=== PATIENT | female | born 2000 | race Caucasian/White ===

== ENCOUNTER → 2022-06-13 11:27 | Outpatient (BNVA) | payer MEDICAID, SELFPAY | PROVIDERS: Visit Provider Nurse Practitioner Women's Health | DX: Z34.90 Encounter for supervision of normal pregnancy, unspecified, unspecified trimester (principal) | CPT/HCPCS: 80307; 81000; 84443; 85027; 86592; 86762; 86803; 86850; 86900; 87086; 87340; 87806 ==

== ENCOUNTER → 2022-06-29 15:20 | Outpatient (BNVA) | payer MEDICAID, SELFPAY | PROVIDERS: Visit Provider Obstetrics & Gynecology | DX: Z36.87 Encounter for antenatal screening for uncertain dates (principal) | CPT/HCPCS: 76801 ==

== ENCOUNTER → 2022-08-08 14:20 | Outpatient (BNVA) | payer MEDICAID, SELFPAY | PROVIDERS: Visit Provider Obstetrics & Gynecology | DX: Z34.90 Encounter for supervision of normal pregnancy, unspecified, unspecified trimester (principal) | CPT/HCPCS: 76805 ==

== ENCOUNTER → 2022-10-04 10:03 | Outpatient (BNVA) | payer SELFPAY | PROVIDERS: Visit Provider Obstetrics & Gynecology | DX: Z34.80 Encounter for supervision of other normal pregnancy, unspecified trimester (principal) | CPT/HCPCS: 82950; 84315; 85025; 86850 ==

== ENCOUNTER → 2022-10-18 09:10 | Outpatient (BNVA) | payer SELFPAY | PROVIDERS: Visit Provider Obstetrics & Gynecology | DX: Z34.80 Encounter for supervision of other normal pregnancy, unspecified trimester (principal) | CPT/HCPCS: 81000 ==

== ENCOUNTER → 2022-11-01 13:02 | Outpatient (BNVA) | payer SELFPAY | PROVIDERS: Visit Provider Obstetrics & Gynecology | DX: Z34.80 Encounter for supervision of other normal pregnancy, unspecified trimester (principal) | CPT/HCPCS: 81000 ==

== ENCOUNTER → 2022-11-15 10:54 | Outpatient (BNVA) | payer MEDICAID, SELFPAY | PROVIDERS: Visit Provider Nurse Practitioner Women's Health | DX: O26.899 Other specified pregnancy related conditions, unspecified trimester; Z67.91 Unspecified blood type, Rh negative; Z3A.34 34 weeks gestation of pregnancy | CPT/HCPCS: 81000; 87086; 87491; 87591 ==

== ENCOUNTER → 2022-11-29 09:00 | Outpatient (BNVA) | payer MEDICAID, SELFPAY | PROVIDERS: Visit Provider Obstetrics & Gynecology | DX: Z34.80 Encounter for supervision of other normal pregnancy, unspecified trimester (principal) | CPT/HCPCS: 81000; 87081 ==

== ENCOUNTER → 2022-12-06 11:45 | Outpatient (BNVA) | payer MEDICAID, SELFPAY | PROVIDERS: Visit Provider Obstetrics & Gynecology | DX: Z34.80 Encounter for supervision of other normal pregnancy, unspecified trimester (principal) | CPT/HCPCS: 81000 ==

== ENCOUNTER 2022-12-13 08:35 | Day surgery (SDC) | payer MEDICAID, SELFPAY | END 2022-12-13 23:00 | disposition home or self-care (01) | LOC: OR 01-17 08:35 | PROVIDERS: Visit Provider Obstetrics & Gynecology | DX: Z34.80 Encounter for supervision of other normal pregnancy, unspecified trimester (principal); Z3A.00 Weeks of gestation of pregnancy not specified | CPT/HCPCS: 81000 ==

== ENCOUNTER → 2022-12-20 12:11 | Outpatient (BNVA) | payer SELFPAY | PROVIDERS: Visit Provider Obstetrics & Gynecology | DX: Z34.80 Encounter for supervision of other normal pregnancy, unspecified trimester (principal) | CPT/HCPCS: 81000 ==

== ENCOUNTER → 2022-12-25 15:17 | Outpatient (BNVA) | payer MEDICAID, SELFPAY | PROVIDERS: Visit Provider Obstetrics & Gynecology | DX: Z34.80 Encounter for supervision of other normal pregnancy, unspecified trimester (principal) | CPT/HCPCS: 76819; 81000 ==

== ENCOUNTER 2022-12-27 19:35 | Inpatient (IN) | payer MEDICAID, SELFPAY ==
[2022-12-27] VITALS (19 sets, daily range): BP systolic 121–140; BP diastolic 64–89; PULSE 77–99; RESP 18; TEMP 36.2–36.5; O2SAT 100; BMI 37.2
--- NOTE | 2022-12-27 21:25 | PM.OBGYHP ---
Providers/Chief Complaint Admitting Physician: Barney Lakhani MD Primary INTERMEDIATE PROJECT MANAGER: Barney Lakhani MD Chief Complaint: Induction of labor HPI INTERMEDIATE PROJECT MANAGER History of Present Illness 22 y.o. SA1 LMP March 31, 2022 EDC December 23, 2022, c/w 14-week sono At 40 w 4 d No complications Admitted for induction of labor No c/o + active movements PMHx: none All: DMPA - hives Present Details : 2 Para: 0 Date of Last Menstrual Period: 03/31/22 Calculated Date of Delivery: 01/05/23 Gestational Age Based on Last Menstrual Period: 39 Labs Rubella: Immune RPR: Negative GBS: Negative Medications/Allergies Home Medications Medication Instructions Recorded Confirmed Last Taken Type loratadine 10 mg tablet (Claritin) 10 mg PO DAILY 06/13/22 12/25/22 Unknown History prenat.vits,jaye,[id number] 1 tab PO DAILY 06/13/22 12/25/22 Unknown History Allergies Allergy/AdvReac Type Severity Reaction Status Date / Time medroxyprogesterone Allergy hives Verified 12/25/22 15:58 [From Depo-Provera] PFSH INTERMEDIATE PROJECT MANAGER PFSH: Family History Grandmother Diabetes Maternal Mother Diabetes Gestational Grandfather Hypertension Maternal Stroke Family/Other Breast cancer Paternal Aunt Denies family history of Cervical cancer Colon cancer Ovarian cancer Uterine cancer Thyroid disease History History History 2 Term 0 0 Miscarriages/Ectopic 1 Living Children 0 Care JAS Calculator Estimated Delivery Date Method Current WG Current Estimate 12/23/22 Ultrasound #1 40w 5d Other Estimates 01/05/23 LMP (Certain) 38w 6d Vitals/I&O/Wt Last Vital Signs Temp 98.3 F 12/28/22 09:45 Pulse 103 H 12/28/22 09:45 Resp 16 12/28/22 09:45 BP 133/80 12/28/22 09:45 Pulse Ox 97 12/28/22 09:45 O2 Del Method Room Air 12/28/22 09:45 12/27/22 12/28/22 12/28/22 22:59 06:59 14:59 Intake Total 1614.784 / 1614.784 Output Total 1500 / 1500 Balance 114.784 / 114.784 Weight last 48 hrs Weight 245 lb Physical Exam Narrative: Weight 235 lbs; 5?8? VS normal Awake, alert Lungs: clear Cor: RRR Abd: nontender FH 38 cm; cephalic FHTs normal Cervix: 3 cm / 90% / -2 / posterior Ext: no edema External monitor: heart tracing good variability, + accelerations Urinary Catheter Management: Greene: Cath Placed During This Visit: yes, but has since been removed by the nurse Reason for Continuing Indwelling Catheter: Decision to DC Catheter Urinary Catheter Date of Insertion: 12/28/22 Urinary Catheter Time of Insertion: 00:55 Date Urinary Catheter Removed: 12/28/22 Time Urinary Catheter Discontinued: 04:45 Data 12/27/22 20:45 Results Labs OB ([facility]): Obstetrics US/Biophysical Profile 12/25/22 Blood Type A Negative 12/27/22 Antibody Screen Negative 12/27/22 Hct 40.3 % (36-47) 12/27/22 Hgb 13.60 g/dL (11.27-16.99) 12/27/22 Rho(D) Type Negative 12/27/22 Plt Count 239 10^3/cmm (157-399) 12/27/22 Hep Bs Antigen Non-reactive (Nonreactive) 06/13/22 Hepatitis C Antibody Non-reactive (Nonreactive) 06/13/22 Rubella IgG Antibody 190.9 IU/mL (0.0-10.0) H 06/13/22 RPR Nonreactive (Nonreactive) 06/13/22 HIV 1&2 Ab & HIV 1 Ag Non-reactive (Non-Reactiv) 06/13/22 TSH 2.00 uIU/mL (0.27-4.20) 06/13/22 C.trachomatis RNA (TMA) Not detected (NOT DETECTED) 11/15/22 N.gonorrhoeae RNA (TMA) Not detected (NOT DETECTED) 11/15/22 Chlamydia/GC Comment See note 11/15/22 Cystic Fibrosis Screen Negative 07/25/22 Gest Glucose Tolerance 123 mg/dL 10/04/22 Urine Opiates Screen Negative ng/mL (Negative) 12/28/22 Ur Barbiturates Screen Negative ng/mL (Negative) 12/28/22 Ur Phencyclidine Scrn Negative ng/mL (Negative) 12/28/22 Ur Amphetamines Screen Negative ng/mL (Negative) 12/28/22 U Benzodiazepines Scrn Negative ng/mL (Negative) 12/28/22 Urine Cocaine Screen Negative ng/mL (Negative) 12/28/22 U Marijuana (THC) Screen Negative ng/mL (Negative) 12/28/22 Micro Urine Specimen 11/15/22 A&P Assessment and plan (1) Encounter for induction of labor: 40 w 4 d GBS negative Admitted for labor induction Plan start Pitocin per protocol (2) Rh negative status during : Attestations Medical Necessity Statement*: patient at 40 w 4 d, admitted for labor induction Coding Level of Care Code Acute Code for Chg Fwd Diagnoses Encounter for induction of labor Z34.90 Rh negative status during O26.899; Z67.91 Time Spent (min) 20
[2022-12-27 21:27] LABS: Basophils # 0.1 10^3/uL (0.0-0.1); Basophils % 0.4 %; Eosinophils # 0.2 10^3/uL (0.0-0.8); Eosinophils % 1.4 %; Hematocrit 40.3 % (36-47); Lymphocytes # 3.4 10^3/uL (0.8-4.8); Mean Corpuscular HGB Conc 33.7 g/dL (30-55); Mean Corpuscular Hemoglobin 30.8 pg (27-33); Mean Corpuscular Volume 91.2 fl (85-98); Mean Platelet Volume 11.1 fL (7.4-10.4); Monocytes # 1.2 10^3/uL (0.2-0.9); Monocytes % 9.1 %; Neutrophils # 8.02 10^3/uL (1.8-7.7); Neutrophils % 62.1 %; Nucleated Red Blood Cells % 0 %; Platelet Count 239 10^3/cmm (157-399); Red Blood Count 4.42 10^6/uL (3.85-5.65); Red Cell Distribution Width 13.6 % (12.1-15.1); White Blood Count 12.92 10^3/uL (3.29-11.43)
[2022-12-27] MEDS: oxytocin 30 UNIT/500 ML BAG IV (22:21)
[2022-12-27] MEDS: dextrose 5%-lactated ringers 1,000 ML 125 ML IV (22:22)
[2022-12-27] MEDS: lactated ringers 1,000 ML 999 ML IV (23:00)
[2022-12-27] MEDS: fentaNYL 50 mcg/mL INJ 2mL IVP (23:24)
[2022-12-28] VITALS (44 sets, daily range): BP systolic 105–190; BP diastolic 52–118; PULSE 78–112; RESP 16; TEMP 36.6–36.9; O2SAT 97–99
[2022-12-28] MEDS: lactated ringers 1,000 ML 999 ML IV (00:05)
[2022-12-28] MEDS: ROPivacaine syringe 100 MG/50 ML SYRINGE 10 MG EPIDURAL ×2 (00:24→04:30)
--- NOTE | 2022-12-28 00:30 | ANES.PREANE2 ---
Pre-Anesthetic Assessment Height/Weight: Height 1.73 m Weight 111.13 kg Temp Pulse Resp BP Pulse Ox O2 Del Method 97.2 F L 100 18 136/64 99 Room Air 12/27/22 23:16 12/28/22 00:26 12/27/22 23:24 12/28/22 00:26 12/28/22 00:19 12/27/22 19:38 Preop Diagnosis: IUP Labor Epidural Familial anesthetic complications: None Last intake: CLEARS-CURRENT 1700-MEAL Social Tobacco (VAPE) THC prior to Exam alert, oriented x 3 and clear to auscultation bilaterally Airway Submandibular: within normal limits Cervical ROM: within normal limits Mallampati: Class II Dentition: full History/ROS No significant history except as noted Pulmonary None reported CV/HEM None reported None reported Hepatic None reported GI None reported Metabolic None reported Musc/skel None reported Neuropsych None reported Anesthetic Plan ASA status: 2 Anesthesia: Regional (specify below) Other: Labor Epidural Medications/Allergies Home Medications Medication Instructions Recorded Confirmed Last Taken Type loratadine 10 mg tablet (Claritin) 10 mg PO DAILY 06/13/22 12/25/22 Unknown History prenat.vits,jaye,zjy-sqrg-wgtex 1 tab PO DAILY 06/13/22 12/25/22 Unknown History Allergies Allergy/AdvReac Type Severity Reaction Status Date / Time medroxyprogesterone Allergy hives Verified 12/25/22 15:58 [From Depo-Provera] Current Medications Generic Name Dose Route Start Last Admin Trade Name Freq PRN Reason Stop Dose Admin Fentanyl 25 - 100 mcg 12/27/22 19:34 12/27/22 23:24 Fentanyl 50 Mcg/Ml Inj 2ml IVP 25 mcg Q1H PRN Administration SEVERE PAIN Dextrose/Lactated Ringer's 1,000 mls @ 125 mls/hr 12/27/22 19:45 12/27/22 23:00 Dextrose 5%-Lactated Ringers IV 0 mls/hr .Q8H MADDY Infusion Oxytocin 30 unit in 500 mls @ 1 mls/hr 12/27/22 20:15 12/27/22 22:21 Pitocin IV 1 milliunit/min .Q24H MADDY 1 mls/hr Administration Protocol 1 MILLIUNIT/MIN Lactated Ringer's 1,000 mls @ 999 mls/hr 12/27/22 22:47 12/27/22 23:00 Lactated Ringers IV 999 mls/hr .Q1H1M PRN Administration See label comments PFSH Anesthesia Family History Grandmother Diabetes Maternal Mother Diabetes Gestational Grandfather Hypertension Maternal Stroke Family/Other Breast cancer Paternal Aunt Denies family history of Cervical cancer Colon cancer Ovarian cancer Uterine cancer Thyroid disease Female Reproductive History Date of last menstrual period: 03/31/22 : 2 Data Anesthesia 12/27/22 20:45 Short CBC 12/27/22 Range/Units 20:45 WBC 12.92 H (3.29-11.43) 10^3/uL Hgb 13.60 (11.27-16.99) g/dL Hct 40.3 (36-47) % MCV 91.2 (85-98) fl Plt Count 239 (157-399) 10^3/cmm Neut % (Auto) 62.1 % Neut # (Auto) 8.02 H (1.8-7.7) 10^3/uL Blood Bank 12/27/22 20:45 Blood Type A Negative Rho(D) Type Negative Antibody Screen Positive Cardiac Studies: No Data to Display Anesthesia Procedures Epidural Time Out Performed: Yes Consent: from patient, risks and benefits reviewed and patient agrees to proceed Lumbar Level: L3-L4 Epidural position: sitting Epidural procedure: sterile prep of area, 1% lidocaine to numb the area, negative for paresthesia passed, test dose given, 1.5% xylocaine 1:200k epi, 0.2% Ropivacaine bolus ml (5), placed PCEA, no systemic response, sterile dressing applied, L.U.D. no apparent complications and 0.2% Ropiavacaine @ mls/hr (10) Additional Comments: LUCÍA at 7 cm on second attempt catheter threaded to 14cm .
[2022-12-28] MEDS: dextrose 5%-lactated ringers 1,000 ML 125 ML IV ×2 (01:13→05:00)
--- NOTE | 2022-12-28 05:05 | PM.DELIVERY ---
Delivery Note: Date of delivery: December 28, 2022 Pre-delivery diagnoses: 40 w 4 d labor induction Post-delivery diagnoses: vaginal delivery second-degree perineal laceration Procedure: vaginal delivery repair of second-degree perineal laceration Op report anesthesia: Epidural Delivering Physician: Barney Lakhani MD Estimated blood loss (mL): 300 Findings: vigorous male infant Normal placenta and cord Cord gases and blood obtained Second-degree perineal laceration repaired EBL: 300 cc No complications Pre-Delivery Course: normal progress of labor with pitocin induction Delivery: vaginal delivery Post-Delivery Status: good History History History 2 Term 0 0 Miscarriages/Ectopic 1 Living Children 0 A&P Assessment and plan (1) Vaginal delivery: (2) Second degree perineal laceration: repaired Coding Level of Care Code Acute Code for Chg Fwd Diagnoses Vaginal delivery O80 Second degree perineal laceration O70.1 Time Spent (min) 60
[2022-12-28 05:35] LABS: Amphetamines Screen Urine Negative (Negative); Barbiturates Screen Urine Negative (Negative); Benzodiazepines Screen Urine Negative (Negative); Cocaine Screen Urine Negative (Negative); Opiate Screen Urine Negative (Negative); PCP Screen Urine Negative (Negative); THC Screen Urine Negative (Negative)
[2022-12-28 05:47] LABS: Base Excess Cord Venous Blood -2.5; Cord Venous Blood HCO3 28.5; Cord Venous Blood pH 7.195; O2 Saturation Cord Venous Bld 7.3
[2022-12-28 05:53] LABS: HCO3 Cord Arterial Blood 21.9; Oxygen Sat Cord Arterial Blood 62.4; PCO2 Cord Arterial Blood 39.3; pH Cord Arterial Blood 7.354
[2022-12-28] MEDS: ibuprofen 800 mg tablet PO ×3 (08:49→20:33)
[2022-12-28] MEDS: prenatal vitamin Capsule 1 CAP PO (08:49)
[2022-12-28] MEDS: docusate sodium 100 mg Capsule PO ×2 (08:49→16:17)
[2022-12-28 18:37] LABS: Hematocrit 30.4 % (36-47); Mean Corpuscular HGB Conc 33.6 g/dL (30-55); Mean Corpuscular Hemoglobin 31.1 pg (27-33); Mean Corpuscular Volume 92.7 fl (85-98); Mean Platelet Volume 11.3 fL (7.4-10.4); Platelet Count 190 10^3/cmm (157-399); Red Blood Count 3.28 10^6/uL (3.85-5.65); Red Cell Distribution Width 13.9 % (12.1-15.1)
[2022-12-29 04:15] VITALS: BP 125/80; PULSE 94; RESP 16; TEMP 36.7; O2SAT 98
--- NOTE | 2022-12-29 09:30 | ANE.PACU2 ---
Inpatient post-anesthesia follow up: Airway intact: Yes Vital signs: Temperature 98.0 F Pulse Rate 94 Respiratory Rate 16 Blood Pressure 125/80 Pulse Oximetry 98 Oxygen Delivery Me thod Room Air Oxygen Flow Rate Fraction of Inspir ed Oxygen Hydration adequate: Yes Nausea and vomiting: No Pain level: 2 Mental status: Baseline
[2022-12-29] MEDS: ibuprofen 800 mg tablet PO (09:36)
[2022-12-29] MEDS: prenatal vitamin Capsule 1 CAP PO (09:36)
[2022-12-29] MEDS: docusate sodium 100 mg Capsule PO (09:36)
[2022-12-29 09:42] VITALS: BP 133/84; PULSE 103; TEMP 36.6; O2SAT 98
--- NOTE | 2022-12-29 10:07 | P.PN_ITS ---
MUSEUM LIBRARIAN Subjective Subjective: Interval history: no c/o no bleeding, pain eating, voiding, ambulating well caring for without any problems baby being transferred due to blood sugar problems Labor: Station: +1 Amniotic Membrane Status: Ruptured Monitor Mode: External Contraction Pattern: Regular Vitals/I&O/Wt Last Vital Signs Temp 97.8 F 12/29/22 09:42 Pulse 103 H 12/29/22 09:42 Resp 16 12/29/22 04:15 BP 133/84 12/29/22 09:42 Pulse Ox 98 12/29/22 09:42 O2 Del Method Room Air 12/29/22 09:42 Weight last 48 hrs Weight 245 lb Physical Exam Narrative: afebrile, VS normal comfortable, awake, alert Abd:? soft, nontender.? fundus firm Ext:? no edema;? nontender Urinary Catheter Management: Greene: Cath Placed During This Visit: yes, but has since been removed by the nurse Reason for Continuing Indwelling Catheter: Decision to DC Catheter Urinary Catheter Date of Insertion: 12/28/22 Urinary Catheter Time of Insertion: 00:55 Date Urinary Catheter Removed: 12/28/22 Time Urinary Catheter Discontinued: 04:45 Data 12/28/22 18:10 A&P Assessment and plan (1) Vaginal delivery: plan discharge home today (2) Second degree perineal laceration: Attestations Medical Necessity Statement*: patient s/p vaginal delivery, plan discharge today Coding Level of Care Code Acute Code for Chg Fwd Diagnoses Vaginal delivery O80 Second degree perineal laceration O70.1 Time Spent (min) 20
--- NOTE | 2022-12-29 10:12 | P.DS_ITS ---
Discharge Providers HIGH SCHOOL COMPUTER SCIENCE TEACHER Date of Admission: 12/27/22 19:35 Date of Discharge: 12/29/22 Attending Provider at Admission: aBrney Lakhani MD Attending Provider at Discharge: Barney Lakhani MD Consults: none Primary HIGH SCHOOL COMPUTER SCIENCE TEACHER: Barney Lakhani MD Diagnoses at Discharge Discharge Diagnosis (1) Vaginal delivery: Details from hospital stay: patient admitted at 40 w 4 d for labor induction patient progressed to complete dilatation delivered vaginally with repair of second-degree perineal laceration no complications Status: Acute (2) Second degree perineal laceration: Details from hospital stay: second-degree perineal laceration repaired without any complications Status: Acute Reason for Visit Reason for Visit: Induction of labor Brief History: 22 y.o. SA1 At 40 w 4 d No complications Admitted for induction of labor Hospital Course Hospital Course patient was given pitocin for induction of labor progressed normally had vaginal delivery and repair of second-degree perineal laceration Information Peripartum Data: Delivery Method: Vaginal Laceration description: Perineal - 2nd Degree Episiotomy description: None complications: none Physical Exam Const: COMMON NORMALS: no acute distress, average body habitus, patient oriented x3, no limitations, healthy appearing, alert and well nourished Resp: COMMON NORMALS: normal respiratory effort and clear to auscultation bilaterally AUSCULTATION: clear to auscultation bilaterally Cardio: COMMON NORMALS: regular rate and regular rhythm RATE: regular rate RHYTHM: regular rhythm GI: COMMON NORMALS: Normal to inspection, nondistended, normoactive bowel sounds present, Soft to palpation and non-tender PALPATION: Yes Soft to palpation Extremity: COMMON NORMALS: normal to inspection and no calf tenderness Neuro: COMMON NORMALS: patient oriented x3 SENSORIUM/ORIENTATION: Yes alert Urinary Catheter Management: Greene: Cath Placed During This Visit: yes, but has since been removed by the nurse Reason for Continuing Indwelling Catheter: Decision to DC Catheter Urinary Catheter Date of Insertion: 12/28/22 Urinary Catheter Time of Insertion: 00:55 Date Urinary Catheter Removed: 12/28/22 Time Urinary Catheter Discontinued: 04:45 History History History 2 Term 0 0 Miscarriages/Ectopic 1 Living Children 0 Discharge Data Studies Completed and Pending Pending at discharge Category Date Time Status Cord Arterial Blood Gas Routine Lab 12/28/22 05:24 Results Laboratory Results WBC 15.10 10^3/uL (3.29-11.43) H 12/28/22 18:10 RBC 3.28 10^6/uL (3.85-5.65) L 12/28/22 18:10 Hgb 10.20 g/dL (11.27-16.99) L 12/28/22 18:10 Hct 30.4 % (36-47) L 12/28/22 18:10 MCV 92.7 fl (85-98) 12/28/22 18:10 MCH 31.1 pg (27-33) 12/28/22 18:10 MCHC 33.6 g/dL (30-55) 12/28/22 18:10 RDW 13.9 % (12.1-15.1) 12/28/22 18:10 Plt Count 190 10^3/cmm (157-399) 12/28/22 18:10 MPV 11.3 fL (7.4-10.4) H 12/28/22 18:10 Neut % (Auto) 62.1 % 12/27/22 20:45 Lymph % (Auto) 26.0 % 12/27/22 20:45 [place] % (Auto) 9.1 % 12/27/22 20:45 Eos % (Auto) 1.4 % 12/27/22 20:45 Baso % (Auto) 0.4 % 12/27/22 20:45 Neut # (Auto) 8.02 10^3/uL (1.8-7.7) H 12/27/22 20:45 Lymph # (Auto) 3.4 10^3/uL (0.8-4.8) 12/27/22 20:45 [place] # (Auto) 1.2 10^3/uL (0.2-0.9) H 12/27/22 20:45 Eos # (Auto) 0.2 10^3/uL (0.0-0.8) 12/27/22 20:45 Baso # (Auto) 0.1 10^3/uL (0.0-0.1) 12/27/22 20:45 Nucleated RBC % (auto) 0 % 12/27/22 20:45 Nucleated RBCs # 0.0 /100WBC 12/27/22 20:45 Cord ABG pH 7.354 12/28/22 05:24 Cord ABG pCO2 39.3 12/28/22 05:24 Cord ABG pO2 27.0 12/28/22 05:24 Cord ABG HCO3 21.9 12/28/22 05:24 Cord ABG O2 Sat 62.4 12/28/22 05:24 Cord VBG pH 7.195 12/28/22 05:25 Cord VBG pCO2 74.0 12/28/22 05:25 Cord VBG pO2 74.0 12/28/22 05:25 Cord VBG HCO3 28.5 12/28/22 05:25 Cord VBG Base Excess -2.5 12/28/22 05:25 Cord VBG O2 Sat 7.3 12/28/22 05:25 Urine Opiates Screen Negative ng/mL (Negative) 12/28/22 05:24 Ur Barbiturates Screen Negative ng/mL (Negative) 12/28/22 05:24 Ur Phencyclidine Scrn Negative ng/mL (Negative) 12/28/22 05:24 Ur Amphetamines Screen Negative ng/mL (Negative) 12/28/22 05:24 U Benzodiazepines Scrn Negative ng/mL (Negative) 12/28/22 05:24 Urine Cocaine Screen Negative ng/mL (Negative) 12/28/22 05:24 U Marijuana (THC) Screen Negative ng/mL (Negative) 12/28/22 05:24 Blood Type A Negative 12/27/22 20:45 Rho(D) Type Negative 12/27/22 20:45 Antibody Screen Negative 12/27/22 20:45 Antibody Identification TNP 12/27/22 20:45 Procedures Performed vaginal delivery repair of second-degree perineal laceration Vitals Last Vital Signs Temp 97.8 F 12/29/22 09:42 Pulse 103 H 12/29/22 09:42 Resp 16 12/29/22 04:15 BP 133/84 12/29/22 09:42 Pulse Ox 98 12/29/22 09:42 O2 Del Method Room Air 12/29/22 09:42 Results Labs OB ([facility]): Obstetrics US/Biophysical Profile Blood Type A Negative 12/27/22 Antibody Screen Negative 12/27/22 Hct 30.4 % (36-47) L 12/28/22 Hgb 10.20 g/dL (11.27-16.99) L 12/28/22 Rho(D) Type Negative 12/27/22 Plt Count 190 10^3/cmm (157-399) 12/28/22 Hep Bs Antigen Non-reactive (Nonreactive) 06/13/22 Hepatitis C Antibody Non-reactive (Nonreactive) 06/13/22 Rubella IgG Antibody 190.9 IU/mL (0.0-10.0) H 06/13/22 RPR Nonreactive (Nonreactive) 06/13/22 HIV 1&2 Ab & HIV 1 Ag Non-reactive (Non-Reactiv) 06/13/22 TSH 2.00 uIU/mL (0.27-4.20) 06/13/22 C.trachomatis RNA (TMA) Not detected (NOT DETECTED) N.gonorrhoeae RNA (TMA) Not detected (NOT DETECTED) Chlamydia/GC Comment See note 11/15/22 Cystic Fibrosis Screen Negative 07/25/22 Gest Glucose Tolerance 123 mg/dL 10/04/22 Urine Opiates Screen Negative ng/mL (Negative) 12/28/22 Ur Barbiturates Screen Negative ng/mL (Negative) 12/28/22 Ur Phencyclidine Scrn Negative ng/mL (Negative) 12/28/22 Ur Amphetamines Screen Negative ng/mL (Negative) 12/28/22 U Benzodiazepines Scrn Negative ng/mL (Negative) 12/28/22 Urine Cocaine Screen Negative ng/mL (Negative) 12/28/22 U Marijuana (THC) Screen Negative ng/mL (Negative) 12/28/22 Micro Urine Specimen 11/15/22 Discharge Plan Discharge Patient Disposition: Home Condition: Stable Prescriptions: Continued loratadine [Claritin] 10 mg tablet 10 mg PO DAILY prenat.vits,jaye,ngb-vtev-fdjnh Tablet 1 tab PO DAILY Discharge Orders: Discharge Order (Routine); Ordered 12/29/22 Ordered By: Barney Lakhani Referrals: Barney Lakhani MD [Physician] - 02/07/23 11:00 am Discharge Diet: Usual diet Discharge Activity: Increase activity as tolerated Patient Instructions: Depression (DC), Perineal Care (DC), Bleeding (DC), COVID-19 and (GEN), Hemorrhage (DC), OB Discharge Report, OB Food/Drug Interaction Guide, OB Care at Home, Opioid Safety, OB Home Care, OB Vaginal Deliveries - [facility], Abnormal Bleeding Discharge Attestations HIGH SCHOOL COMPUTER SCIENCE TEACHER Time Spent in Discharge Care*: less than 30 min Coding Level of Care Code Acute Code for Chg Fwd Diagnoses Vaginal delivery O80 Second degree perineal laceration O70.1 Time Spent (min) 20
[2022-12-29 10:41] VITALS: BP 133/84; PULSE 103; TEMP 36.6; O2SAT 98
[2022-12-30 12:05] LABS: TCO2 Cord Arterial Blood 51.7
== END 2022-12-29 10:41 | disposition home or self-care (01) | DRG 806 ==
LOC: OBGYN 20:27 → OPOB 12-28 10:36
PROVIDERS: Admitting Provider Obstetrics & Gynecology; Visit Provider Obstetrics & Gynecology
DX: O48.0 Post-term pregnancy (principal); O36.0930 Maternal care for other rhesus isoimmunization, third trimester, not applicable or unspecified; Z37.0 Single live birth; Z3A.40 40 weeks gestation of pregnancy; O70.1 Second degree perineal laceration during delivery; O99.334 Smoking (tobacco) complicating childbirth; F17.290 Nicotine dependence, other tobacco product, uncomplicated
CPT/HCPCS: 36415; 36600; 51702; 59025; 59409; 80306; 82803; 83986; 85025; 85027; 86850; 86870; 86900; 96374; 98960; 99211; J2590; J2795; J3010; J7120; J7121